=== PATIENT | male | born 1990 | race American Indian/Alaskan Native ===

== ENCOUNTER 2019-06-28 14:34 | Emergency (ER) | payer OTHER ==
--- NOTE | 2019-06-28 15:13 | Emergency Department Report ---
Blank Doc - Documentation Documentation: 29-year-old male that presents with dysuria. Denies any penile discharge. This initial assessment/diagnostic orders/clinical plan/treatment(s) is/are subject to change based on patient's health status, clinical progression and re- assessment by fellow clinical providers in the ED. Further treatment and workup at subsequent clinical providers discretion. Patient/guardians urged not to elope from the ED as their condition may be serious if not clinically assessed and managed. Initial orders include: 1- Patient sent to [facility] for further evaluation and treatment 2- UA
[2019-06-28 16:22] LABS: Bilirubin,Urine NEG (Negative); Blood,Urine SM (Negative); Color,Urine Yellow (Yellow); Mucus,Urine FEW /HPF; Protein,Urine <15 mg/dL mg/dL (Negative)
[2019-06-28] MEDS ORDERED: XYLOCAINE 1% MPF 5 mL INFILTRATI ONE (19:28)
[2019-06-28] MEDS ORDERED: ZITHROMAX PO ONE (19:28)
[2019-06-28] MEDS ORDERED: ROCEPHIN IM ONE (19:28)
--- NOTE | 2019-06-28 19:46 | Emergency Department Report ---
ED Male HPI - General Chief complaint: Urogenital-Male Stated complaint: BURN WHEN URINATING Time Seen by Provider: 06/28/19 15:12 Source: patient Mode of arrival: Ambulatory Limitations: No Limitations - History of Present Illness Initial comments: Patient is a 29-year-old AA male with no past medical history presents to the ED with a complaint of acute onset persistent dysuria, urinary frequency and urgency and penile discharge for the last 2 weeks intermittently worse in the last 2 days. Patient admits to having unprotected sexual intercourse with multiple partners. Patient denies testicular pain, headache, chest pain, shortness of breath, hematuria, abdominal pain, dizziness, traumatic injury, low back pain, nausea, vomiting, fever and chills. MD Complaint: penile discharge, dysuria, other (urianry urgency and frequency) -: Gradual, week(s) (2) Location: penis Radiation: none Severity: moderate Severity scale (0 -10): 3 Quality: burning Consistency: intermittent Improves with: none Worsens with: urination new sexual partner denies other symptoms, discharge, dysuria. denies: swelling, rash, urinary retention, blood in urine, fever, nausea/vomiting, incontinence - Related Data Sexually active: Yes Previous Rx's Medication Instructions Recorded Last Taken Type Ibuprofen [Motrin] 600 mg PO Q8H PRN #15 tablet 06/28/19 Unknown Rx Sulfamethoxazole/Trimethoprim 1 each PO Q12H #20 tablet 06/28/19 Unknown Rx [Bactrim DS TAB] Allergies Allergy/AdvReac Type Severity Reaction Status Date / Time No Known Allergies Allergy Unverified 06/28/19 14:38 ED Review of Systems ROS: Stated complaint: BURN WHEN URINATING Other details as noted in HPI Constitutional: denies: chills, fever Eyes: denies: eye pain, eye discharge, vision change ENT: denies: ear pain, throat pain Respiratory: denies: cough, shortness of breath, wheezing Cardiovascular: denies: chest pain, palpitations Endocrine: no symptoms reported Gastrointestinal: denies: abdominal pain, nausea, diarrhea Genitourinary: urgency, dysuria, frequency, discharge Musculoskeletal: denies: back pain, joint swelling, arthralgia Skin: denies: rash, lesions Neurological: denies: headache, weakness, paresthesias Psychiatric: denies: anxiety, depression Hematological/Lymphatic: denies: easy bleeding, easy bruising ED Past Medical Hx - Past Medical History Previous Medical History?: No - Surgical History Past Surgical History?: Yes Hx Appendectomy: Yes - Social History Smoking Status: Never Smoker Substance Use Type: None - Medications Home Medications: Home Medications Medication Instructions Recorded Confirmed Last Taken Type Ibuprofen [Motrin] 600 mg PO Q8H PRN #15 tablet 06/28/19 Unknown Rx Sulfamethoxazole/Trimethoprim 1 each PO Q12H #20 tablet 06/28/19 Unknown Rx [Bactrim DS TAB] ED Physical Exam - General Limitations: No Limitations General appearance: alert, in no apparent distress - Head Head exam: Present: atraumatic, normocephalic, normal inspection - Eye Eye exam: Present: normal appearance, PERRL, EOMI Pupils: Present: normal accommodation - ENT ENT exam: Present: normal exam, normal orophraynx, mucous membranes moist, TM's normal bilaterally, normal external ear exam - Neck Neck exam: Present: normal inspection, full ROM. Absent: tenderness, meningismus, lymphadenopathy, thyromegaly - Respiratory Respiratory exam: Present: normal lung sounds bilaterally. Absent: respiratory distress, wheezes, rales, rhonchi, stridor, chest wall tenderness, accessory muscle use, decreased breath sounds, prolonged expiratory - Cardiovascular Cardiovascular Exam: Present: normal rhythm, bradycardia, normal heart sounds. Absent: systolic murmur, diastolic murmur, rubs, gallop - GI/Abdominal GI/Abdominal exam: Present: soft, normal bowel sounds. Absent: distended, tenderness, guarding, rebound, hyperactive bowel sounds, hypoactive bowel sounds, organomegaly - Rectal Rectal exam: Present: deferred - exam: Present: normal inspection External exam: Present: normal external exam - Extremities Exam Extremities exam: Present: normal inspection, full ROM, normal capillary refill - Back Exam Back exam: Present: normal inspection, full ROM. Absent: tenderness, CVA tenderness (R), CVA tenderness (L), muscle spasm, vertebral tenderness - Neurological Exam Neurological exam: Present: alert, oriented X3, CN II-XII intact, normal gait, reflexes normal - Psychiatric Psychiatric exam: Present: normal affect, normal mood - Skin Skin exam: Present: warm, dry, intact, normal color. Absent: rash ED Course Vital Signs 06/28/19 06/28/19 06/28/19 15:12 18:39 20:09 Temperature 98 F 98.3 F 98.5 F Pulse Rate 56 L 56 L 60 Respiratory 16 15 20 Rate Blood Pressure 126/78 125/83 Blood Pressure 122/67 [Left] O2 Sat by Pulse 100 100 99 Oximetry - Reevaluation(s) Reevaluation #1: 06/28/19 20:38 This is a 29-year-old male who presented to the ED with dysuria, urinary frequency and urgency and penile discharge. In the ED, patient is alert and oriented 3 and is not in distress. The vital signs are stable. Urinalysis shows significant urinary tract infection which for a male patient of his age is suspicious for sexually transmitted diseases, commonly chlamydia and gonorrhea. Patient was treated in the ED with azithromycin 1 g by mouth times one and Rocephin. Patient was discharged home on medication and advised to follow-[facility] further tests on other STDs. Patient was advised to inform his sexual partners and advise them to be treated. Patient also given counseling on safe sexual practices. Patient was advised to return to the ED immediately if symptoms get worse. ED Medical Decision Making - Medical Decision Making This is a 29-year-old male who presented to the ED with dysuria, urinary frequency and urgency and penile discharge. In the ED, patient is alert and oriented 3 and is not in distress. The vital signs are stable. Urinalysis shows significant urinary tract infection which for a male patient of his age is suspicious for sexually transmitted diseases, commonly chlamydia and gonorrhea. Patient was treated in the ED with azithromycin 1 g by mouth times one and Rocephin. Patient was discharged home on medication and advised to follow-up with [facility] for further tests on other STDs. Patient was advised to inform his sexual partners and advise them to be treated. Patient also given counseling on safe sexual practices. Patient was advised to return to the ED immediately if symptoms get worse. - Differential Diagnosis STD; urethritis; Acute UTI; dysuria Critical care attestation.: If time is entered above; I have spent that time in minutes in the direct care of this critically ill patient, excluding procedure time. ED Disposition Clinical Impression: STD (sexually transmitted disease), Urethritis, unspecified, Acute urinary tract infection Disposition: DC-01 TO HOME OR SELFCARE Is pt being admited?: No Does the pt Need Aspirin: No Condition: Stable Instructions: Sexually Transmitted Diseases (ED), Safe Sex (ED), Nonspecific Urethritis in Men (ED), Urinary Tract Infection in Men (ED) Additional Instructions: Take medications with food, drink plenty of fluids and follow up with [facility] for further STD tests. Return to the ED immediately if symptoms get worse. Prescriptions: Sulfamethoxazole/Trimethoprim [Bactrim DS TAB] 1 each PO Q12H #20 tablet Ibuprofen [Motrin] 600 mg PO Q8H PRN #15 tablet PRN Reason: Pain Referrals: [facility] [Outside] - 3-5 Days Forms: STI Treatment and Prevention Time of Disposition: 19:44 Print Language: [id number]
[2019-06-28 20:10] VITALS: BP 122/67
== END 2019-06-28 20:11 | disposition home or self-care (01) ==
LOC: ED 14:34
DX: A64 Unspecified sexually transmitted disease (principal); N34.2 Other urethritis; Z90.89 Acquired absence of other organs
CPT/HCPCS: 81001; 87086; J0696; 96372